=== PATIENT | female | born 2000 | race Caucasian/White ===

== ENCOUNTER 2022-04-03 15:18 | Emergency (ER) | payer BC ==
[2022-04-03] MEDS ORDERED: Ketorolac Tromethamine 30 MG/ML VIAL ONE (16:37)
[2022-04-03] MEDS ORDERED: LORazepam 2 MG/ML SYR.(CARPUJECT) ONE (16:37)
[2022-04-03] MEDS ORDERED: Morphine 4 MG/ML VIAL ONE (18:40)
== END 2022-04-03 20:18 | disposition home or self-care (01) ==
LOC: ERS 15:18
DX: M25.551 Pain in right hip (principal); M54.50 Low back pain, unspecified; W10.9XXA Fall (on) (from) unspecified stairs and steps, initial encounter
CPT/HCPCS: 72131; 72170; 96374; 96375; J1885; J2060; J2270